=== PATIENT | female | born 1945 | race American Indian/Alaskan Native ===

== ENCOUNTER 2022-05-09 15:56 | Emergency (ER) | payer MEDICARE ==
[2022-05-09] MEDS ORDERED: ASPIRIN 325 MG TAB PO ONE (16:18)
[2022-05-09 16:39] LABS: Basophils # (Auto) 0.1 K/mm3 (0.0-0.1); Basophils % (Auto) 1.1 % (0.0-1.8); Eosinophils # (Auto) 0.1 K/mm3 (0.0-0.4); Eosinophils % (Auto) 1.4 % (0.0-4.3); Hematocrit 28.7 % (30.3-42.9); Hemoglobin 9.6 gm/dl (10.1-14.3); Lymphocytes # (Auto) 1.7 K/mm3 (1.2-5.4); Lymphocytes % (Auto) 22.3 % (13.4-35.0); Mean Corpuscular HGB Conc 34 % (30-34); Mean Corpuscular Volume 83 fl (79-97); Monocytes # (Auto) 0.5 K/mm3 (0.0-0.8); Monocytes % (Auto) 7.3 % (0.0-7.3); Platelet Count 371 K/mm3 (140-440); Red Blood Count 3.44 M/mm3 (3.65-5.03)
[2022-05-09 17:03] LABS: Alanine Aminotransferase 10 units/L (7-56); Albumin 3.9 g/dL (3.9-5); BUN/Creatinine Ratio 23; Blood Urea Nitrogen 23 mg/dL (7-17); Calcium 9.4 mg/dL (8.4-10.2); Hemolysis Index 12
--- NOTE | 2022-05-09 17:20 | XRay Report ---
CHEST 2 VIEWS INDICATION / CLINICAL INFORMATION: chest pain. COMPARISON: None available. FINDINGS: SUPPORT DEVICES: None. HEART / MEDIASTINUM: Mild cardiomegaly. LUNGS / PLEURA: Mild diffuse interstitial opacities. No pneumothorax. ADDITIONAL FINDINGS: No significant additional findings. IMPRESSION: 1. Mild diffuse interstitial opacities, nonspecific, statistically chronic, a component of superimpos ed mild true interstitial pneumonitis secondarily considered. 2. Mild cardiomegaly. Signer Name: Eugene Herzog MD Signed: 05/09/2022 5:15 PM Workstation Name: [id number]
--- NOTE | 2022-05-10 01:44 | Emergency Department Report ---
ED Chest Pain HPI - General Chief Complaint: Chest Pain Stated Complaint: CHEST PAIN Time Seen by Provider: 05/10/22 00:54 Source: patient Mode of arrival: Wheelchair Limitations: No Limitations - History of Present Illness Initial Comments: Patient is a 77-year-old female presenting to ED with complaint of sharp left- sided chest pain beginning yesterday morning at 1 AM. The pain has been intermittent throughout the day. There are no modifying factors. She denies any associated symptoms. Severity scale (0 -10): 8 - Related Data Allergies Allergy/AdvReac Type Severity Reaction Status Date / Time Sulfa (Sulfonamide Allergy Hives Verified 05/09/22 16:15 Antibiotics) Heart Score - HEART Score History: Slightly suspicious EKG: Normal Age: > 65 Risk factors: 1-2 risk factors Troponin: < normal limit HEART Score: 3 - EKG Read Time Time EKG Completed: 16:04 EKG Read Time: 16:17 - Critical Actions Critical Actions: 0-3 pts:0.9-1.7%risk of adverse cardiac event.Candidate for discharge ED Review of Systems ROS: Stated complaint: CHEST PAIN Other details as noted in HPI Constitutional: denies: chills, fever Respiratory: denies: cough, shortness of breath, wheezing Cardiovascular: chest pain. denies: palpitations, dyspnea on exertion Endocrine: no symptoms reported Gastrointestinal: as per HPI Genitourinary: denies: urgency, dysuria, discharge Musculoskeletal: denies: back pain, joint swelling, arthralgia Skin: denies: rash, lesions Neurological: as per HPI ED Past Medical Hx - Past Medical History Previous Medical History?: Yes Hx Hypertension: Yes Hx Diabetes: Yes Hx Arthritis: Yes Additional medical history: neuropathy - Surgical History Past Surgical History?: Yes Additional Surgical History: x 5 - Social History Smoking Status: Current Every Day Smoker Substance Use Type: None ED Physical Exam - General Limitations: No Limitations General appearance: alert, in no apparent distress - Head Head exam: Present: atraumatic, normocephalic - Neck Neck exam: Present: normal inspection. Absent: tenderness - Respiratory Respiratory exam: Present: normal lung sounds bilaterally, respiratory distress - Cardiovascular Cardiovascular Exam: Present: regular rate, normal rhythm, normal heart sounds - GI/Abdominal GI/Abdominal exam: Present: soft. Absent: distended, tenderness - Rectal Rectal exam: Present: deferred - Neurological Exam Neurological exam: Present: alert, oriented X3 - Psychiatric Psychiatric exam: Present: normal affect, normal mood - Skin Skin exam: Present: warm, dry, intact, normal color ED Course Vital Signs 05/09/22 16:12 Temperature 99 F Pulse Rate 68 Respiratory 21 Rate Blood Pressure 123/71 [Right] O2 Sat by Pulse 99 Oximetry ED Medical Decision Making - Lab Data Result diagrams: 05/09/22 16:25 05/09/22 16:25 - Medical Decision Making CBC and CMP grossly unremarkable. 3 sets of troponins are normal. EKG is normal. I discussed results with patient. She is currently asymptomatic. Heart score is 3. Patient stable for discharge home with return precautions. Critical care attestation.: If time is entered above; I have spent that time in minutes in the direct care of this critically ill patient, excluding procedure time. ED Disposition Clinical Impression: Acute nonspecific chest pain with low risk of coronary artery disease Disposition: 01 HOME / SELF CARE / HOMELESS Is pt being admited?: No Condition: Stable Instructions: Chest Pain (ED), Nonspecific Chest Pain, Adult Additional Instructions: Please follow-up with your regular doctor within 1 to 2 weeks. You may return if your symptoms worsen.
[2022-05-10 02:16] VITALS: BP 139/61
--- NOTE | 2022-05-14 12:27 | Electrocardiograph Report ---
[facility] Test Date: 2022-05-09 Test Time: 16:04:59 Pat Name: NOBLE LENNON Department: Room: Gender: F [employer] Engineer: Florence MAYS RN : 1945 Requested By: MADISON LAGOS Order Number: [id number] Reading MD: Dante Hernandez Measurements Intervals [place] Rate: 69 P: 44 OR: 164 QRS: -2 QRSD: 78 T: 9 QT: 402 QTc: 430 Interpretive Statements Sinus rhythm Low voltage, precordial leads No previous ECG available for comparison Electronically Signed On 05-14-2022 9:27:45 PDT by Dante Hernandez
== END 2022-05-10 02:37 | disposition home or self-care (01) ==
LOC: ED 15:56
DX: R07.89 Other chest pain (principal); I10 Essential (primary) hypertension; E11.9 Type 2 diabetes mellitus without complications; M19.90 Unspecified osteoarthritis, unspecified site; F17.200 Nicotine dependence, unspecified, uncomplicated; Z88.1 Allergy status to other antibiotic agents
CPT/HCPCS: 36415; 71046; 80053; 84484; 85025; 93005; 99284